=== PATIENT | female | born 1970 | race Caucasian/White ===

== ENCOUNTER 2021-08-29 12:58 | Emergency (ER) | payer OTHER ==
[2021-08-29 13:18] VITALS: RESP 18; TEMP 97.3
--- NOTE | 2021-08-29 13:39 | ED ---
Arrhythmia/Palpitations HPI - General Chief Complaint: Arrhythmia/Palpitations Stated Complaint: dizziness Time Seen by Provider: 08/29/21 13:15 Source: patient, EMS Mode of arrival: EMS Limitations: no limitations - History of Present Illness Initial Comments: 51-year-old female past medical history of COPD presents emergency departments with shortness of breath and palpitations. States that today she began having these waves of hot flashes, shortness of breath and palpitations. Started around 10:30 this morning. She denies chest pain. No history of cardiac disease. Last stress testing was several years ago. She does have a diagnosed history of COPD and continues to smoke. occasionally. No history of DVT or PE. No fevers, chills or cough. No alleviating, precipitating factors Review of Systems ROS Statement: Those systems with pertinent positive or pertinent negative responses have been documented in the HPI. ROS Other: All systems not noted in ROS Statement are negative. Past Medical History Past Medical History: COPD History of Any Multi-Drug Resistant Organisms: None Reported Past Surgical History: Hysterectomy, Orthopedic Surgery Past Psychological History: Anxiety Smoking Status: Current every day smoker Past Alcohol Use History: Occasional Past Drug Use History: None Reported General Exam Limitations: no limitations General appearance: alert, in no apparent distress Head exam: Present: atraumatic, normocephalic, normal inspection Eye exam: Present: normal appearance, PERRL, EOMI. Absent: scleral icterus, conjunctival injection, periorbital swelling ENT exam: Present: normal exam, mucous membranes moist Neck exam: Present: normal inspection. Absent: tenderness, meningismus, lymphadenopathy Respiratory exam: Present: normal lung sounds bilaterally. Absent: respiratory distress, wheezes, rales, rhonchi, stridor Cardiovascular Exam: Present: regular rate, normal rhythm, normal heart sounds. Absent: systolic murmur, diastolic murmur, rubs, gallop, clicks GI/Abdominal exam: Present: soft, normal bowel sounds. Absent: distended, tenderness, guarding, rebound, rigid Extremities exam: Present: normal inspection, full ROM, normal capillary refill. Absent: tenderness, pedal edema, joint swelling, calf tenderness Back exam: Present: normal inspection Neurological exam: Present: alert, oriented X3, CN II-XII intact Psychiatric exam: Present: normal affect, normal mood Skin exam: Present: warm, dry, intact, normal color. Absent: rash Course Vital Signs 08/29/21 08/29/21 13:10 15:35 Temperature 97.3 F L Pulse Rate 73 63 Respiratory 18 18 Rate Blood Pressure 153/95 131/96 O2 Sat by Pulse 99 98 Oximetry EKG Findings - EKG Comments: EKG Findings:: EKG demonstrates sinus rhythm with rate of 73. ME interval 144. QRS 89. QTC 449. No acute ST segment elevations or depressions Medical Decision Making - Medical Decision Making Upon arrival patient's placed into room 16. A thorough history and physical exam was performed. X-ray studies are obtained and patient was for chest x-ray. She is place on continuous pulse ox and cardiac monitoring and does have multiple PVCs throughout her stay. Upon reevaluation patient does feel improved. I did discuss diagnosis, differential and treatment options. Patient does need echo, stress testing and Holter monitoring for her palpitations. Fransico sky will follow up with her primary care doctor for this testing. She also has a known lung nodule which she will need repeat imaging about 3 months to determine size and need for biopsy. Return for any new or worsening symptoms. Patient discharged home in stable condition - Lab Data Result diagrams: 08/29/21 13:29 08/29/21 13:29 Lab Results 08/29/21 08/29/21 08/29/21 Range/Units 13:29 13:29 13:29 WBC 6.5 (3.8-10.6) k/uL RBC 4.94 (3.80-5.40) m/uL Hgb 14.5 (11.4-16.0) gm/dL Hct 45.3 (34.0-46.0) % MCV 91.6 (80.0-100.0) fL MCH 29.4 (25.0-35.0) pg MCHC 32.1 (31.0-37.0) g/dL RDW 13.6 (11.5-15.5) % Plt Count 337 (150-450) k/uL MPV 7.2 Neutrophils % 60 % Lymphocytes % 31 % Monocytes % 5 % Eosinophils % 2 % Basophils % 1 % Neutrophils # 3.9 (1.3-7.7) k/uL Lymphocytes # 2.0 (1.0-4.8) k/uL Monocytes # 0.3 (0-1.0) k/uL Eosinophils # 0.1 (0-0.7) k/uL Basophils # 0.0 (0-0.2) k/uL PT 10.1 (9.0-12.0) sec INR 0.9 (<1.2) APTT 20.2 L (22.0-30.0) sec Sodium (137-145) mmol/L Potassium (3.5-5.1) mmol/L Chloride (98-107) mmol/L Carbon Dioxide (22-30) mmol/L Anion Gap mmol/L BUN (7-17) mg/dL Creatinine (0.52-1.04) mg/dL Est GFR (CKD-EPI)AfAm (>60 ml/min/1.73 sqM) Est GFR (CKD-EPI)NonAf (>60 ml/min/1.73 sqM) Glucose (74-99) mg/dL Calcium (8.4-10.2) mg/dL Magnesium (1.6-2.3) mg/dL Total Bilirubin (0.2-1.3) mg/dL AST (14-36) U/L ALT (4-34) U/L Alkaline Phosphatase (38-126) U/L Troponin I (0.000-0.034) ng/mL Total Protein (6.3-8.2) g/dL Albumin (3.5-5.0) g/dL TSH (0.465-4.680) mIU/L Urine Color Colorless Urine Appearance Clear (Clear) Urine pH 6.5 (5.0-8.0) Ur Specific [place] 1.003 (1.001-1.035) Urine Protein Negative (Negative) Urine Glucose (UA) Negative (Negative) Urine Ketones Negative (Negative) Urine Blood Negative (Negative) Urine Nitrite Negative (Negative) Urine Bilirubin Negative (Negative) Urine Urobilinogen <2.0 (<2.0) mg/dL Ur Leukocyte Esterase Negative (Negative) 08/29/21 08/29/21 Range/Units 13:29 13:29 WBC (3.8-10.6) k/uL RBC (3.80-5.40) m/uL Hgb (11.4-16.0) gm/dL Hct (34.0-46.0) % MCV (80.0-100.0) fL MCH (25.0-35.0) pg MCHC (31.0-37.0) g/dL RDW (11.5-15.5) % Plt Count (150-450) k/uL MPV Neutrophils % % Lymphocytes % % Monocytes % % Eosinophils % % Basophils % % Neutrophils # (1.3-7.7) k/uL Lymphocytes # (1.0-4.8) k/uL Monocytes # (0-1.0) k/uL Eosinophils # (0-0.7) k/uL Basophils # (0-0.2) k/uL PT (9.0-12.0) sec INR (<1.2) APTT (22.0-30.0) sec Sodium 140 (137-145) mmol/L Potassium 3.7 (3.5-5.1) mmol/L Chloride 109 H (98-107) mmol/L Carbon Dioxide 23 (22-30) mmol/L Anion Gap 8 mmol/L BUN 11 (7-17) mg/dL Creatinine 0.67 (0.52-1.04) mg/dL Est GFR (CKD-EPI)AfAm >90 (>60 ml/min/1.73 sqM) Est GFR (CKD-EPI)NonAf >90 (>60 ml/min/1.73 sqM) Glucose 93 (74-99) mg/dL Calcium 9.5 (8.4-10.2) mg/dL Magnesium 1.9 (1.6-2.3) mg/dL Total Bilirubin 0.6 (0.2-1.3) mg/dL AST 31 (14-36) U/L ALT 22 (4-34) U/L Alkaline Phosphatase 85 (38-126) U/L Troponin I <0.012 (0.000-0.034) ng/mL Total Protein 6.8 (6.3-8.2) g/dL Albumin 4.4 (3.5-5.0) g/dL TSH 0.869 (0.465-4.680) mIU/L Urine Color Urine Appearance (Clear) Urine pH (5.0-8.0) Ur Specific Tyler (1.001-1.035) Urine Protein (Negative) Urine Glucose (UA) (Negative) Urine Ketones (Negative) Urine Blood (Negative) Urine Nitrite (Negative) Urine Bilirubin (Negative) Urine Urobilinogen (<2.0) mg/dL Ur Leukocyte Esterase (Negative) Disposition Clinical Impression: Pulmonary nodule, Palpitations Disposition: HOME SELF-CARE Condition: Stable Instructions (If sedation given, give patient instructions): Heart Palpitations (ED), Pulmonary Nodules (ED) Additional Instructions: You have a lung nodule. This must be reimaged within 3 months. Please follow- up with the primary care doctor for echo, Holter monitoring and a stress test. If you have any new or worsening symptoms please return to the emergency department Is patient prescribed a controlled substance at d/c from ED?: No Referrals: None,Stated [Primary Care Provider] - 1-2 days Demond Macario MD [STAFF PHYSICIAN] - 1-2 days Polo Ardon MD [STAFF PHYSICIAN] - 1-2 days [facility] [Provider Group] - 1-2 days Time of Disposition: 15:25
[2021-08-29 13:48] LABS: Basophils % (A) 1 %; Eosinophils # (A) 0.1 k/uL (0-0.7); Eosinophils % (A) 2 %; HCT 45.3 % (34.0-46.0); HGB 14.5 gm/dL (11.4-16.0); Lymphocytes % (A) 31 %; MCH 29.4 pg (25.0-35.0); MCHC 32.1 g/dL (31.0-37.0); MCV 91.6 fL (80.0-100.0); Mean Platelet Volume 7.2; Monocytes # (A) 0.3 k/uL (0-1.0); Monocytes % (A) 5 %; Neutrophils # (A) 3.9 k/uL (1.3-7.7); Neutrophils % (A) 60 %; Platelet Count 337 k/uL (150-450); RBC 4.94 m/uL (3.80-5.40); RDW 13.6 % (11.5-15.5); WBC 6.5 k/uL (3.8-10.6)
[2021-08-29 13:58] LABS: ALT 22 U/L (4-34); AST 31 U/L (14-36); African American GFR (CKD) >90 (>60 ml/min/1.73 sqM); Albumin 4.4 g/dL (3.5-5.0); Alkaline Phosphatase 85 U/L (38-126); Anion Gap 8 mmol/L; Blood Urea Nitrogen 11 mg/dL (7-17); Calcium 9.5 mg/dL (8.4-10.2); Carbon Dioxide 23 mmol/L (22-30); Chloride 109 mmol/L (98-107); Glucose 93 mg/dL (74-99); Magnesium 1.9 mg/dL (1.6-2.3); Non-African American GFR(CKD) >90 (>60 ml/min/1.73 sqM); Potassium 3.7 mmol/L (3.5-5.1); Sodium 140 mmol/L (137-145); Total Bilirubin 0.6 mg/dL (0.2-1.3); Total Protein 6.8 g/dL (6.3-8.2)
--- NOTE | 2021-08-29 13:58 | XR ---
EXAMINATION TYPE: XR chest 2V DATE OF EXAM: 08/29/2021 COMPARISON: NONE TECHNIQUE: PA and lateral views submitted. HISTORY: Dysrhythmia FINDINGS: The lungs are clear and there is no pneumothorax, pleural effusion, or focal pneumonia. Heart size normal. Hyperinflation suggests COPD. No overt failure. Post surgical changes overlying the cervical spine. Nodular density overlying the thoracic spine 7 mm. too small to characterize. IMPRESSION: 1. No acute process. Correlate for COPD. Of a nodule overlying the upper thoracic spine could represe nt a pulmonary nodule. Short-term follow-up CT chest obtained
[2021-08-29 14:06] LABS: INR 0.9 (<1.2); Prothrombin Time 10.1 sec (9.0-12.0)
[2021-08-29 14:16] LABS: Appearance,Urine Clear (Clear); Bilirubin,Urine Negative (Negative); Blood,Urine Negative (Negative); Color,Urine Colorless; Glucose,Urine (UA) Negative (Negative); Ketones,Urine Negative (Negative); Leukocyte Esterase,Urine Negative (Negative); Nitrite,Urine Negative (Negative); PH, Urine 6.5 (5.0-8.0); Protein,Urine Negative (Negative); Specific Gravity,Urine 1.003 (1.001-1.035); Urobilinogen,Urine <2.0 mg/dL (<2.0)
[2021-08-29 14:18] LABS: Partial Thromboplastin Time 20.2 sec (22.0-30.0)
[2021-08-29 15:40] VITALS: BP 131/96; PULSE 63
== END 2021-08-29 15:40 | disposition home or self-care (01) ==
LOC: EC 12:58
DX: R00.2 Palpitations (principal); R91.1 Solitary pulmonary nodule; R42 Dizziness and giddiness; F17.200 Nicotine dependence, unspecified, uncomplicated; J44.9 Chronic obstructive pulmonary disease, unspecified
CPT/HCPCS: 36415; 71046; 80053; 81003; 83735; 84443; 84484; 85025; 85610; 85730; 93005; 99285

== ENCOUNTER 2022-09-20 14:40 | Emergency (ER) | payer OTHER ==
[2022-09-20] MEDS ORDERED: methylPREDNISolone SOD SUCCI 125 MG/2 ML VIAL IV STA (15:12)
[2022-09-20] MEDS ORDERED: ALBUTEROL NEBULIZED 2.5 MG/3 ML INHALATION STA (15:12)
[2022-09-20] MEDS ORDERED: IPRATROPIUM 0.5 MG/2.5 ML NEBU INHALATION STA (15:12)
--- NOTE | 2022-09-20 15:39 | XR ---
EXAMINATION TYPE: XR chest 2V DATE OF EXAM: 09/20/2022 COMPARISON: 08/29/2021 HISTORY: Shortness of breath TECHNIQUE: Frontal and lateral views of the chest are obtained. FINDINGS: Scattered senescent parenchymal changes noted. Hyperinflation compatible with COPD. No evidence for infiltrate. No evidence for atelectasis. Heart size is stable. Mediastinal structures are stable and grossly unremarkable. No evidence for hilar prominence. Degenerative changes dorsal spine. IMPRESSION: 1. No evidence for acute pulmonary disease.
[2022-09-20 15:49] LABS: ALT 21 U/L (4-34); AST 25 U/L (14-36); African American GFR (CKD) >90 (>60 ml/min/1.73 sqM); Alkaline Phosphatase 58 U/L (38-126); Anion Gap 10 mmol/L; Basophils % (A) 1 %; Blood Urea Nitrogen 10 mg/dL (7-17); Calcium 9.4 mg/dL (8.4-10.2); Carbon Dioxide 23 mmol/L (22-30); Chloride 108 mmol/L (98-107); Eosinophils # (A) 0.3 k/uL (0-0.7); Eosinophils % (A) 4 %; Glucose 71 mg/dL (74-99); HGB 13.9 gm/dL (11.4-16.0); Lymphocytes # (A) 2.3 k/uL (1.0-4.8); Lymphocytes % (A) 35 %; MCH 30.4 pg (25.0-35.0); MCHC 33.2 g/dL (31.0-37.0); MCV 91.5 fL (80.0-100.0); Mean Platelet Volume 7.3; Monocytes # (A) 0.4 k/uL (0-1.0); Monocytes % (A) 5 %; Neutrophils # (A) 3.6 k/uL (1.3-7.7); Neutrophils % (A) 53 %; Non-African American GFR(CKD) >90 (>60 ml/min/1.73 sqM); Platelet Count 282 k/uL (150-450); Potassium 3.7 mmol/L (3.5-5.1); RBC 4.59 m/uL (3.80-5.40); RDW 13.1 % (11.5-15.5); Sodium 141 mmol/L (137-145); Total Bilirubin 0.3 mg/dL (0.2-1.3); Total Protein 6.3 g/dL (6.3-8.2); WBC 6.7 k/uL (3.8-10.6)
[2022-09-20] MEDS ORDERED: cefTRIAXone IN SWFI 1,000 MG/10 ML SYRINGE IVP STA (17:02)
--- NOTE | 2022-09-20 17:02 | ED ---
General Adult HPI - General Chief complaint: Chest Pain Stated complaint: sob,chest congestion Time Seen by Provider: 09/20/22 14:45 Source: patient Mode of arrival: wheelchair Limitations: no limitations - History of Present Illness Initial comments: This is a 52-year-old female presents emergency Department complaining of shortness of breath on and off for the last week. Patient states she has chest tightness and has been coughing quite a bit for the last week. Patient states she also thinks she hurt her ribs on the left side because when she touches and they're tender when she takes deep breath or tender. Patient denies a fever or chills. Patient denies any abdominal pain patient denies nausea vomiting diarrhea. Patient denies any back pain. - Related Data Home Medications Medication Instructions Recorded Confirmed Albuterol Inhaler [Ventolin Hfa 1 - 2 puff INHALATION RT-Q6H PRN 09/20/22 09/20/22 Inhaler] Albuterol Nebulized [Ventolin 2.5 mg INHALATION RT-Q6H PRN 09/20/22 09/20/22 Nebulized] Cyclobenzaprine [Flexeril] 5 mg PO TID PRN 09/20/22 09/20/22 Gabapentin [Neurontin] 100 mg PO QID 09/20/22 09/20/22 HYDROcodone/APAP 10-325MG [[place] 1 tab PO 5XD PRN 09/20/22 09/20/22 10-325] Ibuprofen [Motrin] 400 mg PO BID PRN 09/20/22 09/20/22 Ondansetron [Zofran] 4 mg PO Q8HR PRN 09/20/22 09/20/22 busPIRone HCl [Buspar] 10 mg PO BID 09/20/22 09/20/22 diazePAM [Valium] 5 mg PO Q8H PRN 09/20/22 09/20/22 Previous Rx's Medication Instructions Recorded Albuterol Inhaler [Ventolin Hfa 1 - 2 puff INHALATION Q6HR PRN #2 09/20/22 Inhaler] each Azithromycin [Zithromax Tri-Mian (3 500 mg PO DAILY 3 Days #3 tab 09/20/22 tabs)] Ipratropium-Albuterol Nebulize 3 ml INHALATION Q6H #90 ml 09/20/22 [Duoneb 0.5 mg-3 mg/3 ml Soln] predniSONE [Deltasone] 40 mg PO DAILY #8 tab 09/20/22 Allergies Allergy/AdvReac Type Severity Reaction Status Date / Time aloe vera [From Flexall] Allergy Anaphylaxis Verified 09/20/22 15:52 bacitracin Allergy Rash/Hives Verified 09/20/22 15:52 [From Neosporin ([id number])] menthol [From Flexall] Allergy Anaphylaxis Verified 09/20/22 15:52 neomycin Allergy Rash/Hives Verified 09/20/22 15:52 [From Neosporin ([id number])] polymyxin B Allergy Rash/Hives Verified 09/20/22 15:52 [From Neosporin ([id number])] red (food color) Allergy Rash/Hives Verified 09/20/22 15:52 vitamin E (d-alpha Allergy Anaphylaxis Verified 09/20/22 15:52 tocopherol) [From Flexall] Review of Systems ROS Statement: Those systems with pertinent positive or pertinent negative responses have been documented in the HPI. ROS Other: All systems not noted in ROS Statement are negative. Past Medical History Past Medical History: COPD Additional Past Medical History / Comment(s): back pain, lung nodule History of Any Multi-Drug Resistant Organisms: None Reported Past Surgical History: Hysterectomy, Orthopedic Surgery Past Psychological History: Anxiety, Depression Smoking Status: Current every day smoker Past Alcohol Use History: Occasional Past Drug Use History: None Reported General Exam - General Exam Comments Initial Comments: GENERAL: Patient is well-developed and well-nourished. Patient is nontoxic and well- hydrated and is in mild distress. ENT: Neck is soft and supple. No significant lymphadenopathy is noted. Oropharynx is clear. Moist mucous membranes. Neck has full range of motion without eliciting any pain. EYES: The sclera were anicteric and conjunctiva were pink and moist. Extraocular movements were intact and pupils were equal round and reactive to light. Eyelids were unremarkable. PULMONARY: Patient has some expiratory wheezing CARDIOVASCULAR: There is a regular rate and rhythm without any murmurs gallops or rubs. Chest pain is reproducible on palpation ABDOMEN: Soft and nontender with normal bowel sounds. SKIN: Skin is clear with no lesions or rashes and otherwise unremarkable. NEUROLOGIC: Patient is alert and oriented x3. Cranial nerves II through XII are grossly intact. Motor and sensory are also intact. Normal speech, volume and content. Symmetrical smile. MUSCULOSKELETAL: Normal extremities with adequate strength and full range of motion. No lower extremity swelling or edema. No calf tenderness. LYMPHATICS: No significant lymphadenopathy is noted PSYCHIATRIC: Normal psychiatric evaluation. Limitations: no limitations Course Vital Signs 09/20/22 09/20/22 14:43 16:20 Temperature 98.0 F Pulse Rate 84 82 Respiratory 22 Rate Blood Pressure 111/80 O2 Sat by Pulse 100 Oximetry Medical Decision Making - Medical Decision Making EKG was interpreted by myself. EKG shows a sinus rhythm at a 81 bpm MS interval 246 QRS is 81 QT interval 356 QTC is 393. Patient's EKG shows no ST segment or depression. Was pt. sent in by a medical professional or institution (KATHYA Nela, RECEPTION CLERK, urgent care, hospital, or fdc...) When possible be specific @ -No Did you speak to anyone other than the patient for history (EMS, parent, family, police, friend...)? What history was obtained from this source @ -No Did you review nursing and triage notes (agree or disagree)? Why? @ -I reviewed and agree with nursing and triage notes Were old charts reviewed (outside hosp., previous admission, EMS record, old EKG, old radiological studies, urgent care reports/EKG's, fdc records)? Report findings @ -I reviewed prior charts her prior lab work Differential Diagnosis (chest pain, altered mental status, abdominal pain women, abdominal pain men, vaginal bleeding, weakness, fever, dyspnea, syncope, headache, dizziness, GI bleed, back pain, seizure, CVA, palpatations, mental health, musculoskeletal)? @ -Differential Dyspnea: Coronary syndrome, arrhythmia, tamponade, asthma, COPD, pulmonary embolism, pneumonia, pneumothorax, pulmonary effusion, anaphylaxis, diabetic ketoacidosis, flailed chest, pulmonary contusion, diaphragmatic rupture, anemia, n euromuscular, this is not meant to be an all-inclusive list. EKG interpreted by me (3pts min.). @ -As above X-rays interpreted by me (1pt min.). @ -Chest x-ray shows no acute abnormality CT interpreted by me (1pt min.). @ -None done U/S interpreted by me (1pt. min.). @ -None done What testing was considered but not performed or refused? (CT, X-rays, U/S, labs)? Why? @ -None What meds were considered but not given or refused? Why? @ -None Did you discuss the management of the patient with other professionals (professionals i.e. , PA, RECEPTION CLERK, lab, RT, psych nurse, social professionals, medical lab scientist, teacher, pharmaceutical officer, outpatient case manager)? Give summary @ -No Was smoking cessation discussed for >3mins.? @ -Yes Was critical care preformed (if so, how long)? @ -No Were there social determinants of health that impacted care today? How? (Homelessness, low income, unemployed, alcoholism, drug addiction, transportation, low edu. Level, literacy, decrease access to med. care, [facility], rehab)? @ -No Was there de-escalation of care discussed even if they declined (Discuss DNR or withdrawal of care, Hospice)? DNR status @ -No What co-morbidities impacted this encounter? (DM, HTN, Smoking, COPD, CAD, Cancer, CVA, ARF, Chemo, Hep., AIDS, mental health diagnosis, sleep apnea, morbid obesity)? @ -None Was patient admitted / discharged? Hospital course, mention meds given and route, prescriptions, significant lab abnormalities, going to OR and other pertinent info. @ -Patient received multiple breathing treatments as well as steroids. Patient also received Rocephin. Patient has a normal chest x-ray patient be discharged with a steroids and antibiotics on the way home. Patient does agree that she will try to quit smoking. Undiagnosed new problem with uncertain prognosis? @ -No Drug Therapy requiring intensive monitoring for toxicity (Heparin, Nitro, Insulin, Cardizem)? @ -No Were any procedures done? @ -No Diagnosis/symptom? @ -COPD exacerbation Acute, or Chronic, or Acute on Chronic? @ -Acute Uncomplicated (without systemic symptoms) or Complicated (systemic symptoms)? @ -Complicated Side effects of treatment? @ -No Exacerbation, Progression, or Severe Exacerbation? @ -No Poses a threat to life or bodily function? How? (Chest pain, [place], [place], pneumonia, PE, COPD, DKA, ARF, appy, cholecystitis, CVA, Diverticulitis, Homicidal, Suicidal, threat to staff... and all critical care pts) @ -Yes this could lead to hypoxia and end organ dysfunction - Lab Data Result diagrams: 09/20/22 15:29 09/20/22 15:29 Lab Results 09/20/22 09/20/22 09/20/22 Range/Units 15:29 15:29 15:29 WBC 6.7 (3.8-10.6) k/uL RBC 4.59 (3.80-5.40) m/uL Hgb 13.9 (11.4-16.0) gm/dL Hct 42.0 (34.0-46.0) % MCV 91.5 (80.0-100.0) fL MCH 30.4 (25.0-35.0) pg MCHC 33.2 (31.0-37.0) g/dL RDW 13.1 (11.5-15.5) % Plt Count 282 (150-450) k/uL MPV 7.3 Neutrophils % 53 % Lymphocytes % 35 % Monocytes % 5 % Eosinophils % 4 % Basophils % 1 % Neutrophils # 3.6 (1.3-7.7) k/uL Lymphocytes # 2.3 (1.0-4.8) k/uL Monocytes # 0.4 (0-1.0) k/uL Eosinophils # 0.3 (0-0.7) k/uL Basophils # 0.0 (0-0.2) k/uL Sodium 141 (137-145) mmol/L Potassium 3.7 (3.5-5.1) mmol/L Chloride 108 H (98-107) mmol/L Carbon Dioxide 23 (22-30) mmol/L Anion Gap 10 mmol/L BUN 10 (7-17) mg/dL Creatinine 0.75 (0.52-1.04) mg/dL Est GFR (CKD-EPI)AfAm >90 (>60 ml/min/1.73 sqM) Est GFR (CKD-EPI)NonAf >90 (>60 ml/min/1.73 sqM) Glucose 71 L (74-99) mg/dL Plasma Lactic Acid Ramon 1.4 (0.7-2.0) mmol/L Calcium 9.4 (8.4-10.2) mg/dL Magnesium 2.0 (1.6-2.3) mg/dL Total Bilirubin 0.3 (0.2-1.3) mg/dL AST 25 (14-36) U/L ALT 21 (4-34) U/L Alkaline Phosphatase 58 (38-126) U/L Troponin I (0.000-0.034) ng/mL Total Protein 6.3 (6.3-8.2) g/dL Albumin 4.0 (3.5-5.0) g/dL Influenza Type A (PCR) (Not Detectd) Influenza Type B (PCR) (Not Detectd) RSV (PCR) (Not Detectd) SARS-CoV-2 (PCR) (Not Detectd) 09/20/22 09/20/22 Range/Units 15:29 15:29 WBC (3.8-10.6) k/uL RBC (3.80-5.40) m/uL Hgb (11.4-16.0) gm/dL Hct (34.0-46.0) % MCV (80.0-100.0) fL MCH (25.0-35.0) pg MCHC (31.0-37.0) g/dL RDW (11.5-15.5) % Plt Count (150-450) k/uL MPV Neutrophils % % Lymphocytes % % Monocytes % % Eosinophils % % Basophils % % Neutrophils # (1.3-7.7) k/uL Lymphocytes # (1.0-4.8) k/uL Monocytes # (0-1.0) k/uL Eosinophils # (0-0.7) k/uL Basophils # (0-0.2) k/uL Sodium (137-145) mmol/L Potassium (3.5-5.1) mmol/L Chloride (98-107) mmol/L Carbon Dioxide (22-30) mmol/L Anion Gap mmol/L BUN (7-17) mg/dL Creatinine (0.52-1.04) mg/dL Est GFR (CKD-EPI)AfAm (>60 ml/min/1.73 sqM) Est GFR (CKD-EPI)NonAf (>60 ml/min/1.73 sqM) Glucose (74-99) mg/dL Plasma Lactic Acid Ramon (0.7-2.0) mmol/L Calcium (8.4-10.2) mg/dL Magnesium (1.6-2.3) mg/dL Total Bilirubin (0.2-1.3) mg/dL AST (14-36) U/L ALT (4-34) U/L Alkaline Phosphatase (38-126) U/L Troponin I <0.012 (0.000-0.034) ng/mL Total Protein (6.3-8.2) g/dL Albumin (3.5-5.0) g/dL Influenza Type A (PCR) Not Detected (Not Detectd) Influenza Type B (PCR) Not Detected (Not Detectd) RSV (PCR) Not Detected (Not Detectd) SARS-CoV-2 (PCR) Not Detected (Not Detectd) Disposition Clinical Impression: Acute exacerbation of chronic obstructive pulmonary disease (COPD) Disposition: HOME SELF-CARE Instructions (If sedation given, give patient instructions): COPD (Chronic Obstructive Pulmonary Disease) (ED) Prescriptions: predniSONE [Deltasone] 40 mg PO DAILY #8 tab Ipratropium-Albuterol Nebulize [Duoneb 0.5 mg-3 mg/3 ml Soln] 3 ml INHALATION Q6H #90 ml Albuterol Inhaler [Ventolin Hfa Inhaler] 1 - 2 puff INHALATION Q6HR PRN #2 each PRN Reason: Difficulty breathing Azithromycin [Zithromax Tri-Mian (3 tabs)] 500 mg PO DAILY 3 Days #3 tab Is patient prescribed a controlled substance at d/c from ED?: No Referrals: None,Stated [Primary Care Provider] - 1-2 days Time of Disposition: 17:30
[2022-09-20] MEDS ORDERED: cefTRIAXone 1,000 MG VIAL (IM USE) IM STA (17:34)
[2022-09-20 17:51] VITALS: BP 104/83; PULSE 77; RESP 18; TEMP 98.6
== END 2022-09-20 17:51 | disposition home or self-care (01) ==
LOC: EC 14:40
DX: J44.1 Chronic obstructive pulmonary disease with (acute) exacerbation (principal); F41.9 Anxiety disorder, unspecified; F32.A Depression, unspecified; F17.200 Nicotine dependence, unspecified, uncomplicated; Z88.8 Allergy status to other drugs, medicaments and biological substances; Z88.1 Allergy status to other antibiotic agents; Z79.899 Other long term (current) drug therapy; Z20.822 Contact with and (suspected) exposure to COVID-19
CPT/HCPCS: 36415; 94640; 93005; 80053; 83605; 83735; 84484; 85025; 87636; 71046; 99285; 96374; 96372; J2930; J0696

== ENCOUNTER 2022-12-18 19:23 | Emergency (ER) | payer OTHER ==
[2022-12-18 19:37] VITALS: BP 108/68; PULSE 111; RESP 20; TEMP 96.8
[2022-12-18] MEDS ORDERED: KETOROLAC 15 MG/ML 1 ML VIAL IVP STA (19:41)
--- NOTE | 2022-12-18 19:41 | ED ---
General Adult HPI - General Chief complaint: Chest Pain Stated complaint: Chest Pain, SOB Time Seen by Provider: 12/18/22 19:35 Source: patient, RN notes reviewed, old records reviewed Mode of arrival: ambulatory Limitations: no limitations - History of Present Illness Initial comments: This a 52-year-old female who presents to the emergency department stating that since she woke up this week she's been getting sharp chest pain in the center of her chest that lasted about 3 seconds and she's had 5 episodes of these. Patient states she had an episode while she was having her EKG. Patient denies shortness of breath difficulty breathing or any diaphoretic episodes. Patient denies any nausea. Patient denies any abdominal pain. Patient denies any radiation of the pain. Patient is having no pain currently. Patient states she does continue to smoke. - Related Data Home Medications Medication Instructions Recorded Confirmed Albuterol Inhaler [Ventolin Hfa 1 - 2 puff INHALATION RT-Q6H PRN 09/20/22 09/20/22 Inhaler] Albuterol Nebulized [Ventolin 2.5 mg INHALATION RT-Q6H PRN 09/20/22 09/20/22 Nebulized] Cyclobenzaprine [Flexeril] 5 mg PO TID PRN 09/20/22 09/20/22 Gabapentin [Neurontin] 100 mg PO QID 09/20/22 09/20/22 HYDROcodone/APAP 10-325MG [[place] 1 tab PO 5XD PRN 09/20/22 09/20/22 10-325] Ibuprofen [Motrin] 400 mg PO BID PRN 09/20/22 09/20/22 Ondansetron [Zofran] 4 mg PO Q8HR PRN 09/20/22 09/20/22 busPIRone HCl [Buspar] 10 mg PO BID 09/20/22 09/20/22 diazePAM [Valium] 5 mg PO Q8H PRN 09/20/22 09/20/22 Previous Rx's Medication Instructions Recorded Albuterol Inhaler [Ventolin Hfa 1 - 2 puff INHALATION Q6HR PRN #2 09/20/22 Inhaler] each Azithromycin [Zithromax Tri-Mian (3 500 mg PO DAILY 3 Days #3 tab 09/20/22 tabs)] Ipratropium-Albuterol Nebulize 3 ml INHALATION Q6H #90 ml 09/20/22 [Duoneb 0.5 mg-3 mg/3 ml Soln] predniSONE [Deltasone] 40 mg PO DAILY #8 tab 09/20/22 Allergies Allergy/AdvReac Type Severity Reaction Status Date / Time aloe vera [From Flexall] Allergy Anaphylaxis Verified 12/18/22 19:27 bacitracin Allergy Rash/Hives Verified 12/18/22 19:27 [From Neosporin ([id number])] menthol [From Flexall] Allergy Anaphylaxis Verified 12/18/22 19:27 neomycin Allergy Rash/Hives Verified 12/18/22 19:27 [From Neosporin ([id number])] polymyxin B Allergy Rash/Hives Verified 12/18/22 19:27 [From Neosporin ([id number])] red (food color) Allergy Rash/Hives Verified 12/18/22 19:27 vitamin E (d-alpha Allergy Anaphylaxis Verified 12/18/22 19:27 tocopherol) [From Flexall] Review of Systems ROS Statement: Those systems with pertinent positive or pertinent negative responses have been documented in the HPI. ROS Other: All systems not noted in ROS Statement are negative. Past Medical History Past Medical History: COPD Additional Past Medical History / Comment(s): back pain, lung nodule History of Any Multi-Drug Resistant Organisms: None Reported Past Surgical History: Hysterectomy, Orthopedic Surgery Past Psychological History: Anxiety, Depression Smoking Status: Current every day smoker Past Alcohol Use History: Occasional Past Drug Use History: None Reported General Exam - General Exam Comments Initial Comments: GENERAL: Patient is well-developed and well-nourished. Patient is nontoxic and well- hydrated and is in no acute distress. ENT: Neck is soft and supple. No significant lymphadenopathy is noted. Oropharynx is clear. Moist mucous membranes. Neck has full range of motion without eliciting any pain. EYES: The sclera were anicteric and conjunctiva were pink and moist. Extraocular movements were intact and pupils were equal round and reactive to light. Eyelids were unremarkable. PULMONARY: Unlabored respirations. Good breath sounds bilaterally. No audible rales rhonchi or wheezing was noted. CARDIOVASCULAR: There is a regular rate and rhythm without any murmurs gallops or rubs. ABDOMEN: Soft and nontender with normal bowel sounds. SKIN: Skin is clear with no lesions or rashes and otherwise unremarkable. NEUROLOGIC: Patient is alert and oriented x3. Cranial nerves II through XII are grossly intact. Motor and sensory are also intact. Normal speech, volume and content. Symmetrical smile. MUSCULOSKELETAL: Normal extremities with adequate strength and full range of motion. No lower extremity swelling or edema. No calf tenderness. LYMPHATICS: No significant lymphadenopathy is noted PSYCHIATRIC: Normal psychiatric evaluation. Limitations: no limitations Course Vital Signs 12/18/22 19:25 Temperature 96.8 F L Pulse Rate 111 H Respiratory 20 Rate Blood Pressure 108/68 O2 Sat by Pulse 100 Oximetry Medical Decision Making - Medical Decision Making EKG is interpreted by myself. EKG shows a sinus tachycardia at 103 bpm WA interval 260 QRS is 89 QT interval 335 QTC is 395 per patient's EKG shows no ST segment elevation or depression. Was pt. sent in by a medical professional or institution (, PA, FORMING MACHINE UPKEEP MECHANIC, urgent care, hospital, or correction...) When possible be specific @ -No Did you speak to anyone other than the patient for history (EMS, parent, family, police, friend...)? What history was obtained from this source @ -No Did you review nursing and triage notes (agree or disagree)? Why? @ -I reviewed and agree with nursing and triage notes Were old charts reviewed (outside hosp., previous admission, EMS record, old EKG, old radiological studies, urgent care reports/EKG's, correction records)? Report findings @ -I reviewed prior charts I lab work. Differential Diagnosis (chest pain, altered mental status, abdominal pain women, abdominal pain men, vaginal bleeding, weakness, fever, dyspnea, syncope, headache, dizziness, GI bleed, back pain, seizure, CVA, palpatations, mental health, musculoskeletal)? @ -Differential Chest Pain: Stable Angina, Unstable Angina, STEMI, NSTEMI Aortic Dissection, Pneumothorax, Musculoskeletal, Esophageal Spasm GERD, Cholecystitis, Pancreatitis, Zoster, this is not meant to be an all-inclusive list. EKG interpreted by me (3pts min.). @ -As above X-rays interpreted by me (1pt min.). @ -Chest x-ray shows no acute abnormality CT interpreted by me (1pt min.). @ -None done U/S interpreted by me (1pt. min.). @ -None done What testing was considered but not performed or refused? (CT, X-rays, U/S, labs)? Why? @ -None What meds were considered but not given or refused? Why? @ -None Did you discuss the management of the patient with other professionals (professionals i.e. , PA, FORMING MACHINE UPKEEP MECHANIC, lab, RT, psych nurse, social worker delinquency prevention, surgery scheduling coordinator, teacher, real estate utilization officer, hospice case manager)? Give summary @ -No Was smoking cessation discussed for >3mins.? @ -No Was critical care preformed (if so, how long)? @ -No Were there social determinants of health that impacted care today? How? (Homelessness, low income, unemployed, alcoholism, drug addiction, transportation, low edu. Level, literacy, decrease access to med. care, nursing home, rehab)? @ -No Was there de-escalation of care discussed even if they declined (Discuss DNR or withdrawal of care, Hospice)? DNR status @ -No What co-morbidities impacted this encounter? (DM, HTN, Smoking, COPD, CAD, Cancer, CVA, ARF, Chemo, Hep., AIDS, mental health diagnosis, sleep apnea, morbid obesity)? @ -None Was patient admitted / discharged? Hospital course, mention meds given and route, prescriptions, significant lab abnormalities, going to OR and other pertinent info. @ -Patient's lab work was all within normal range. Chest x-ray showed no acute abnormality. Patient had no further chest pain while she was in the emergency department. Patient states the pain only lasted 3 seconds but it was concerning because he continued all day so she wanted to get evaluated. Undiagnosed new problem with uncertain prognosis? @ -No Drug Therapy requiring intensive monitoring for toxicity (Heparin, Nitro, In sulin, Cardizem)? @ -No Were any procedures done? @ -No Diagnosis/symptom? @ -Chest wall pain Acute, or Chronic, or Acute on Chronic? @ -Acute Uncomplicated (without systemic symptoms) or Complicated (systemic symptoms)? @ -Uncomplicated Side effects of treatment? @ -No Exacerbation, Progression, or Severe Exacerbation? @ -No Poses a threat to life or bodily function? How? (Chest pain, [place], [place], pneumonia, PE, COPD, DKA, ARF, appy, cholecystitis, CVA, Diverticulitis, Homicidal, Suicidal, threat to staff... and all critical care pts) @ -No - Lab Data Result diagrams: 12/18/22 19:59 12/18/22 19:59 Lab Results 12/18/22 12/18/22 12/18/22 Range/Units 19:59 19:59 19:59 WBC 7.5 (3.8-10.6) k/uL RBC 4.53 (3.80-5.40) m/uL Hgb 13.5 (11.4-16.0) gm/dL Hct 40.1 (34.0-46.0) % MCV 88.4 (80.0-100.0) fL MCH 29.7 (25.0-35.0) pg MCHC 33.6 (31.0-37.0) g/dL RDW 13.2 (11.5-15.5) % Plt Count 385 (150-450) k/uL MPV 7.2 Neutrophils % 52 % Lymphocytes % 33 % Monocytes % 6 % Eosinophils % 6 % Basophils % 1 % Neutrophils # 4.0 (1.3-7.7) k/uL Lymphocytes # 2.5 (1.0-4.8) k/uL Monocytes # 0.4 (0-1.0) k/uL Eosinophils # 0.5 (0-0.7) k/uL Basophils # 0.0 (0-0.2) k/uL PT 9.7 L (10.0-12.5) sec INR 0.9 (<1.2) APTT 23.4 (22.0-30.0) sec D-Dimer 0.38 (<0.60) mg/L FEU Sodium 141 (137-145) mmol/L Potassium 4.1 (3.5-5.1) mmol/L Chloride 108 H (98-107) mmol/L Carbon Dioxide 23 (22-30) mmol/L Anion Gap 10 mmol/L BUN 15 (7-17) mg/dL Creatinine 1.05 H (0.52-1.04) mg/dL Est GFR (CKD-EPI)AfAm 71 (>60 ml/min/1.73 sqM) Est GFR (CKD-EPI)NonAf 61 (>60 ml/min/1.73 sqM) Glucose 94 (74-99) mg/dL Calcium 9.6 (8.4-10.2) mg/dL Magnesium 2.0 (1.6-2.3) mg/dL Total Bilirubin 0.3 (0.2-1.3) mg/dL AST 24 (14-36) U/L ALT 19 (4-34) U/L Alkaline Phosphatase 68 (38-126) U/L Troponin I (0.000-0.034) ng/mL Total Protein 6.4 (6.3-8.2) g/dL Albumin 4.0 (3.5-5.0) g/dL 12/18/22 Range/Units 19:59 WBC (3.8-10.6) k/uL RBC (3.80-5.40) m/uL Hgb (11.4-16.0) gm/dL Hct (34.0-46.0) % MCV (80.0-100.0) fL MCH (25.0-35.0) pg MCHC (31.0-37.0) g/dL RDW (11.5-15.5) % Plt Count (150-450) k/uL MPV Neutrophils % % Lymphocytes % % Monocytes % % Eosinophils % % Basophils % % Neutrophils # (1.3-7.7) k/uL Lymphocytes # (1.0-4.8) k/uL Monocytes # (0-1.0) k/uL Eosinophils # (0-0.7) k/uL Basophils # (0-0.2) k/uL PT (10.0-12.5) sec INR (<1.2) APTT (22.0-30.0) sec D-Dimer (<0.60) mg/L FEU Sodium (137-145) mmol/L Potassium (3.5-5.1) mmol/L Chloride (98-107) mmol/L Carbon Dioxide (22-30) mmol/L Anion Gap mmol/L BUN (7-17) mg/dL Creatinine (0.52-1.04) mg/dL Est GFR (CKD-EPI)AfAm (>60 ml/min/1.73 sqM) Est GFR (CKD-EPI)NonAf (>60 ml/min/1.73 sqM) Glucose (74-99) mg/dL Calcium (8.4-10.2) mg/dL Magnesium (1.6-2.3) mg/dL Total Bilirubin (0.2-1.3) mg/dL AST (14-36) U/L ALT (4-34) U/L Alkaline Phosphatase (38-126) U/L Troponin I <0.012 (0.000-0.034) ng/mL Total Protein (6.3-8.2) g/dL Albumin (3.5-5.0) g/dL Disposition Clinical Impression: Chest wall pain Disposition: HOME SELF-CARE Condition: Good Instructions (If sedation given, give patient instructions): Chest Wall Pain (ED), Chest Pain (ED) Is patient prescribed a controlled substance at d/c from ED?: No Referrals: None,Stated [Primary Care Provider] - 1-2 days Time of Disposition: 20:39
[2022-12-18 20:16] LABS: Basophils % (A) 1 %; Eosinophils # (A) 0.5 k/uL (0-0.7); Eosinophils % (A) 6 %; HCT 40.1 % (34.0-46.0); HGB 13.5 gm/dL (11.4-16.0); Lymphocytes # (A) 2.5 k/uL (1.0-4.8); Lymphocytes % (A) 33 %; MCH 29.7 pg (25.0-35.0); MCHC 33.6 g/dL (31.0-37.0); MCV 88.4 fL (80.0-100.0); Mean Platelet Volume 7.2; Monocytes # (A) 0.4 k/uL (0-1.0); Monocytes % (A) 6 %; Neutrophils % (A) 52 %; Platelet Count 385 k/uL (150-450); RBC 4.53 m/uL (3.80-5.40); RDW 13.2 % (11.5-15.5); WBC 7.5 k/uL (3.8-10.6)
[2022-12-18 20:19] LABS: ALT 19 U/L (4-34); AST 24 U/L (14-36); African American GFR (CKD) 71 (>60 ml/min/1.73 sqM); Alkaline Phosphatase 68 U/L (38-126); Anion Gap 10 mmol/L; Blood Urea Nitrogen 15 mg/dL (7-17); Calcium 9.6 mg/dL (8.4-10.2); Carbon Dioxide 23 mmol/L (22-30); Chloride 108 mmol/L (98-107); Glucose 94 mg/dL (74-99); Non-African American GFR(CKD) 61 (>60 ml/min/1.73 sqM); Potassium 4.1 mmol/L (3.5-5.1); Sodium 141 mmol/L (137-145); Total Bilirubin 0.3 mg/dL (0.2-1.3); Total Protein 6.4 g/dL (6.3-8.2)
[2022-12-18 20:30] LABS: INR 0.9 (<1.2); Partial Thromboplastin Time 23.4 sec (22.0-30.0); Prothrombin Time 9.7 sec (10.0-12.5)
--- NOTE | 2022-12-18 20:38 | XR ---
EXAMINATION TYPE: XR chest 2V DATE OF EXAM: 12/18/2022 COMPARISON: 09/20/2022 INDICATION: Chest pain short of breath TECHNIQUE: Frontal and lateral views of the chest are obtained. FINDINGS: The heart size is normal. The pulmonary vasculature is normal. The lungs are clear. IMPRESSION: 1. No acute pulmonary process.
== END 2022-12-18 21:29 | disposition home or self-care (01) ==
LOC: EC 19:23
DX: R07.89 Other chest pain (principal); R00.0 Tachycardia, unspecified; I25.2 Old myocardial infarction; J44.9 Chronic obstructive pulmonary disease, unspecified; F17.200 Nicotine dependence, unspecified, uncomplicated; F41.9 Anxiety disorder, unspecified; F32.A Depression, unspecified; Z79.899 Other long term (current) drug therapy; Z88.1 Allergy status to other antibiotic agents; Z91.041 Radiographic dye allergy status; Z91.018 Allergy to other foods; Z88.8 Allergy status to other drugs, medicaments and biological substances
CPT/HCPCS: 36415; 93005; 85379; 80053; 83735; 84484; 85025; 85610; 85730; 71046; 99285; 96374; J1885

== ENCOUNTER 2023-05-29 15:03 | Emergency (ER) | payer MEDICARE ==
--- NOTE | 2023-05-29 15:16 | ED ---
General Adult HPI - General Source: patient, RN notes reviewed Mode of arrival: ambulatory Limitations: no limitations <Inés García - Last Filed: 05/29/23 15:15> <Kerri Cavazos - Last Filed: 05/31/23 00:32> - General Stated complaint: Neck pain Time Seen by Provider: 05/29/23 15:16 - History of Present Illness Initial comments: Quick note: 52-year-old female presented to the ER with chief complaint of left- sided neck pain. Patient has had surgeries on her neck. She states she turned her head to the right recently and felt a pop. She is also reporting paresthesias down bilateral arms. (Inés García) 52 year old female presents to the emergency department for evaluation of left sided neck discomfort. She states that this has been going on for around 2 weeks. She reports that at that time she turned her head and heard a pop. She states that since then she has had discomfort in the left side of her neck. States the pain is worse with movement. She admits to burning in the back of her hands. Denies numbness, tingling anywhere else in arms. She does report prior surgery to her neck. She follows closely with ortho spine [place]. She admits to seeing her neurosurgeon since the pain started. She is scheduled for CT and MRI on 06/10/23. (Kerri Cavazos) - Related Data Home Medications Medication Instructions Recorded Confirmed Albuterol Inhaler [Ventolin Hfa 1 - 2 puff INHALATION RT-Q6H PRN 09/20/22 12/18/22 Inhaler] Gabapentin [Neurontin] 100 mg PO QID 09/20/22 12/18/22 HYDROcodone/APAP 10-325MG [[place] 1 tab PO 5XD PRN 09/20/22 12/18/22 10-325] Ibuprofen [Motrin] 400 mg PO BID PRN 09/20/22 12/18/22 busPIRone HCl [Buspar] 10 mg PO BID PRN 09/20/22 12/18/22 diazePAM [Valium] 5 mg PO BID PRN 09/20/22 12/18/22 Cyclobenzaprine [Flexeril] 10 mg PO TID PRN 12/18/22 12/18/22 Previous Rx's Medication Instructions Recorded Ketorolac [Toradol] 10 mg PO Q8HR #15 tab 05/29/23 Allergies Allergy/AdvReac Type Severity Reaction Status Date / Time aloe vera [From Flexall] Allergy Anaphylaxis Verified 05/29/23 15:52 bacitracin Allergy Rash/Hives Verified 05/29/23 15:52 [From Neosporin ([id number])] menthol [From Flexall] Allergy Anaphylaxis Verified 05/29/23 15:52 neomycin Allergy Rash/Hives Verified 05/29/23 15:52 [From Neosporin ([id number])] polymyxin B Allergy Rash/Hives Verified 05/29/23 15:52 [From Neosporin ([id number])] red (food color) Allergy Rash/Hives Verified 05/29/23 15:52 vitamin E (d-alpha Allergy Anaphylaxis Verified 05/29/23 15:52 tocopherol) [From Flexall] Review of Systems ROS Other: All systems not noted in ROS Statement are negative. <Inés García - Last Filed: 05/29/23 15:15> ROS Other: All systems not noted in ROS Statement are negative. <Kerri Cavazos - Last Filed: 05/31/23 00:32> ROS Statement: Those systems with pertinent positive or pertinent negative responses have been documented in the HPI. Past Medical History Past Medical History: COPD Additional Past Medical History / Comment(s): back pain, lung nodule History of Any Multi-Drug Resistant Organisms: None Reported Past Surgical History: Hysterectomy, Orthopedic Surgery Past Psychological History: Anxiety, Depression Smoking Status: Current every day smoker Past Alcohol Use History: Occasional Past Drug Use History: None Reported <Inés García - Last Filed: 05/29/23 15:15> General Exam <Inés García - Last Filed: 05/29/23 15:15> Limitations: no limitations General appearance: alert, in no apparent distress Head exam: Present: atraumatic, normocephalic, normal inspection Eye exam: Present: normal appearance, PERRL, EOMI. Absent: scleral icterus, conjunctival injection, periorbital swelling ENT exam: Present: normal exam, mucous membranes moist Neck exam: Present: normal inspection, tenderness (left trapezius), full ROM. Absent: meningismus, lymphadenopathy Respiratory exam: Present: normal lung sounds bilaterally. Absent: respiratory distress, wheezes, rales, rhonchi, stridor Cardiovascular Exam: Present: regular rate, normal rhythm, normal heart sounds. Absent: systolic murmur, diastolic murmur, rubs, gallop, clicks Extremities exam: Present: normal inspection, full ROM, normal capillary refill. Absent: tenderness, pedal edema, joint swelling, calf tenderness Neurological exam: Present: alert, oriented X3, CN II-XII intact, normal gait. Absent: motor sensory deficit Psychiatric exam: Present: normal affect, normal mood Skin exam: Present: warm, dry, intact, normal color. Absent: rash <Kerri Cavazos - Last Filed: 05/31/23 00:32> - General Exam Comments Initial Comments: Visual Physical Exam General: Well-appearing, nontoxic, no acute distress. Head: Normocephalic, atraumatic Eyes: PERRLA, EOMI ENT: Airway patent Chest: Nonlabored breathing Skin: No visual rash, normal skin tone Neuro: Alert and oriented 3 Musculoskeletal: No gross abnormalities (Inés García) Course Vital Signs 05/29/23 05/29/23 15:50 18:53 Temperature 99.5 F 98.8 F Pulse Rate 96 90 Respiratory 16 18 Rate Blood Pressure 117/85 115/76 O2 Sat by Pulse 99 98 Oximetry Medical Decision Making <Inés García - Last Filed: 05/29/23 15:15> <Kerri Cavazos - Last Filed: 05/31/23 00:32> - Medical Decision Making I performed the quick note portion of this chart. Electronically signed by Inés García PA-C (Inés García) Was pt. sent in by a medical professional or institution (KATHYA Neal, WOOD TREATING INSPECTOR, urgent ca re, hospital, or fpc...) When possible be specific @ -No Did you speak to anyone other than the patient for history (EMS, parent, family, police, friend...)? What history was obtained from this source @ -No Did you review nursing and triage notes (agree or disagree)? Why? @ -I reviewed and agree with nursing and triage notes Were old charts reviewed (outside hosp., previous admission, EMS record, old EKG, old radiological studies, urgent care reports/EKG's, fpc records)? Report findings @ -No old charts were reviewed Differential Diagnosis (chest pain, altered mental status, abdominal pain women, abdominal pain men, vaginal bleeding, weakness, fever, dyspnea, syncope, headache, dizziness, GI bleed, back pain, seizure, CVA, palpatations, mental health, musculoskeletal)? @ -Not applicable EKG interpreted by me (3pts min.). @ -None X-rays interpreted by me (1pt min.). @ -Cervical spine x-ray shows no acute fracture or dislocation, some foraminal narrowing on the left at C2-C3 CT interpreted by me (1pt min.). @ -None done U/S interpreted by me (1pt. min.). @ -None done What testing was considered but not performed or refused? (CT, X-rays, U/S, labs)? Why? @ -None What meds were considered but not given or refused? Why? @ -None Did you discuss the management of the patient with other professionals (professionals i.e. , PA, WOOD TREATING INSPECTOR, lab, RT, psych nurse, psych social worker, inflatable buildings laminator, teacher, chief diversity officer, family service caseworker)? Give summary @ -No Was smoking cessation discussed for >3mins.? @ -No Was critical care preformed (if so, how long)? @ -No Were there social determinants of health that impacted care today? How? (Homelessness, low income, unemployed, alcoholism, drug addiction, transportation, low edu. Level, literacy, decrease access to med. care, fdc, rehab)? @ -No Was there de-escalation of care discussed even if they declined (Discuss DNR or withdrawal of care, Hospice)? DNR status @ -No What co-morbidities impacted this encounter? (DM, HTN, Smoking, COPD, CAD, Cancer, CVA, ARF, Chemo, Hep., AIDS, mental health diagnosis, sleep apnea, morbid obesity)? @ -None Was patient admitted / discharged? Hospital course, mention meds given and route, prescriptions, significant lab abnormalities, going to OR and other pertinent info. @ -Discharged. Patient presented to the emergency department for evaluation of neck pain. She does have chronic neck pain. 2 weeks ago she states that she felt a pop in her neck and has had worsening pain since then. X-rays of the cervical spine obtained which show no acute fracture or dislocation, some foraminal narrowing at C2-C3 on the left. Patient states that she is aware of this. She is scheduled for outpatient CT and MRI. Discussed obtaining CT in ED today, patient would like to wait to her outpatient appointment. Prescription was sent to her pharmacy for Toradol, advised not to take any other anti- inflammatories while on this medication. Patient understanding agreeable plan. Patient stable at time of discharge. Case discussed with Dr. Lopez Undiagnosed new problem with uncertain prognosis? @ -No Drug Therapy requiring intensive monitoring for toxicity (Heparin, Nitro, In sulin, Cardizem)? @ -No Were any procedures done? @ -No Diagnosis/symptom? @ -Cervical strain Acute, or Chronic, or Acute on Chronic? @ -Acute Uncomplicated (without systemic symptoms) or Complicated (systemic symptoms)? @ -Uncomplicated Side effects of treatment? @ -No Exacerbation, Progression, or Severe Exacerbation? @ -No Poses a threat to life or bodily function? How? (Chest pain, [place], [place], pneumonia, PE, COPD, DKA, ARF, appy, cholecystitis, CVA, Diverticulitis, Homicidal, Suicidal, threat to staff... and all critical care pts) @ -No (Kerri Cavazos) Disposition <Inés García - Last Filed: 05/29/23 15:15> Is patient prescribed a controlled substance at d/c from ED?: No <Kerri Cavazos - Last Filed: 05/31/23 00:32> Clinical Impression: Cervical radiculopathy, Strain of neck muscle Disposition: HOME SELF-CARE Condition: Stable Instructions (If sedation given, give patient instructions): Cervical Strain (ED), Cervical Radiculopathy (ED) Additional Instructions: Please follow up with your surgeon and neurologist. Do not take any anti- inflammatories while taking toradol. Return to the emergency department for new or worsening symptoms. Prescriptions: Ketorolac [Toradol] 10 mg PO Q8HR #15 tab Referrals: None,Stated [Primary Care Provider] - 1-2 days
--- NOTE | 2023-05-29 16:40 | XR ---
EXAMINATION TYPE: XR cervical spine comp DATE OF EXAM: 05/29/2023 COMPARISON: None HISTORY: Pain TECHNIQUE: 5 view cervical spine FINDINGS: There is an anterior cervical fusion of C3-4 through C6. Disc spacers present at C4-5. Post erior spinal lamellar line is intact. The prevertebral space is normal. Vertebral body heights appear preserved. Some facet degenerative changes present diffusely through the cervical spine. C2-3 forami nal narrowing is present on the left. Odontoid is nondiagnostic due to overlying occiput. IMPRESSION: 1. No acute osseous abnormality cervical spine. 2. Some foraminal narrowing is present left C2-3.
[2023-05-29] MEDS: KETOROLAC 15 MG/ML 1 ML VIAL IM STA (18:42)
[2023-05-29 19:13] VITALS: BP 115/76; PULSE 90; RESP 18; TEMP 98.8
== END 2023-05-29 18:54 | disposition home or self-care (01) ==
LOC: EC 15:03
DX: S16.1XXA Strain of muscle, fascia and tendon at neck level, initial encounter (principal); M54.12 Radiculopathy, cervical region; F17.200 Nicotine dependence, unspecified, uncomplicated; Z88.8 Allergy status to other drugs, medicaments and biological substances; X58.XXXA Exposure to other specified factors, initial encounter
CPT/HCPCS: 72050; 99283; 96372; J1885

== ENCOUNTER 2023-11-07 21:06 | Emergency (ER) | payer MEDICARE ==
[2023-11-07 21:16] VITALS: TEMP 97.9
[2023-11-07] MEDS: methylPREDNISolone SOD SUCCI 125 MG/2 ML VIAL IM ONE (21:47)
[2023-11-07] MEDS: FAMOTIDINE 20 MG TAB PO STA (21:47)
[2023-11-07] MEDS: BETAMETHASONE DIPROPIONATE 0.05% CREAM 15 GM TUBE TOPICAL ONE (22:59)
[2023-11-07] MEDS: KETOROLAC 15 MG/ML 1 ML VIAL IM STA (23:02)
--- NOTE | 2023-11-07 23:13 | ED ---
Allergic Reaction HPI - General Chief complaint: Allergic Reaction Stated complaint: Insect Sting Time Seen by Provider: 11/07/23 21:23 Source: patient, RN notes reviewed Mode of arrival: ambulatory Limitations: no limitations - History of Present Illness Initial Comments: This is a 53 year old female who presents to the emergency department for a bee sting. Patient was stung in the right forearm at around 5 PM. Shortly afterwards she started to develop swelling to the right arm that she believes is getting bigger. This is also increasingly painful and red. She has been stung by bees before but never developed any kind of allergic reaction. She took a total of 2 doses of Benadryl before arrival. Denies any chest pain or shortness of breath. MD Complaint: allergic reaction - Related Data Home Medications Medication Instructions Recorded Confirmed Albuterol Inhaler [Ventolin Hfa 1 - 2 puff INHALATION RT-Q6H PRN 09/20/22 12/18/22 Inhaler] Gabapentin [Neurontin] 100 mg PO QID 09/20/22 12/18/22 HYDROcodone/APAP 10-325MG [[place] 1 tab PO 5XD PRN 09/20/22 12/18/22 10-325] Ibuprofen [Motrin] 400 mg PO BID PRN 09/20/22 12/18/22 busPIRone HCl [Buspar] 10 mg PO BID PRN 09/20/22 12/18/22 diazePAM [Valium] 5 mg PO BID PRN 09/20/22 12/18/22 Cyclobenzaprine [Flexeril] 10 mg PO TID PRN 12/18/22 12/18/22 Previous Rx's Medication Instructions Recorded Ketorolac [Toradol] 10 mg PO Q8HR #15 tab 05/29/23 Famotidine 40 mg PO DAILY 5 Days #5 tablet 11/08/23 predniSONE 50 mg PO DAILY 5 Days #5 tab 11/08/23 Allergies Allergy/AdvReac Type Severity Reaction Status Date / Time aloe vera [From Flexall] Allergy Anaphylaxis Verified 05/29/23 15:52 bacitracin Allergy Rash/Hives Verified 05/29/23 15:52 [From Neosporin ([id number])] menthol [From Flexall] Allergy Anaphylaxis Verified 05/29/23 15:52 neomycin Allergy Rash/Hives Verified 04/16/24 15:52 [From Neosporin ([id number])] nickel Allergy Rash/Hives Verified 11/07/23 21:16 polymyxin B Allergy Rash/Hives Verified 05/29/23 15:52 [From Neosporin ([id number])] red (food color) Allergy Rash/Hives Verified 05/29/23 15:52 vitamin E (d-alpha Allergy Anaphylaxis Verified 05/29/23 15:52 tocopherol) [From Flexall] Review of Systems ROS Statement: Those systems with pertinent positive or pertinent negative responses have been documented in the HPI. ROS Other: All systems not noted in ROS Statement are negative. Past Medical History Past Medical History: COPD Additional Past Medical History / Comment(s): back pain, lung nodule, neoplasm of occipital bone, stenosis of cervix, inflammation of sacroiliac join, prolapsed lumbar intervertebral disc, degenerative of cerical/lumbar intervertebral disc, occipital headache History of Any Multi-Drug Resistant Organisms: None Reported Past Surgical History: Hysterectomy, Orthopedic Surgery Additional Past Surgical History / Comment(s): cervical post laminectomy, cervical radiculopathy, lumbar radiculopathy, lumosacreal radiculitis Past Psychological History: Anxiety, Depression Smoking Status: Current every day smoker Past Alcohol Use History: Occasional Past Drug Use History: None Reported General Exam Limitations: no limitations General appearance: alert, in no apparent distress Head exam: Present: atraumatic, normocephalic, normal inspection Respiratory exam: Present: normal lung sounds bilaterally. Absent: respiratory distress, wheezes, rales, rhonchi, stridor Cardiovascular Exam: Present: regular rate, normal rhythm, normal heart sounds. Absent: systolic murmur, diastolic murmur, rubs, gallop, clicks Extremities exam: Present: other (Generalized swelling, erythema, and warmth to the right forearm. 2+ radial pulses.) Neurological exam: Present: alert, oriented X3, CN II-XII intact Psychiatric exam: Present: normal affect, normal mood Course Vital Signs 11/07/23 11/08/23 21:13 00:36 Temperature 97.9 F Pulse Rate 66 87 Respiratory 18 20 Rate Blood Pressure 142/86 138/89 O2 Sat by Pulse 99 98 Oximetry Medical Decision Making - Medical Decision Making This is a 53-year-old female who presents to the emergency department for concerns of an allergic reaction. Was pt. sent in by a medical professional or institution? @ -No Did you speak to anyone other than the patient for history? @ -No Did you review nursing and triage notes? @ -Yes, and I agree, it is accurate with regards to the patient's symptoms. Were old charts reviewed? @ -No Differential Diagnosis? @ -Differential Arm Redness/Swelling: Allergic reaction, cellulitis, gout, burn, eczema, this is not meant to be an all-inclusive list. EKG interpreted by me (3pts min.)? @ -Not obtained X-rays interpreted by me (1pt min.)? @ -Not obtained CT interpreted by me (1pt min.)? @ -Not obtained U/S interpreted by me (1pt. min.)? @ -Not obtained What testing was considered but not performed? (CT, X-rays, U/S, labs)? Why? @ -None What meds were considered but not given? Why? @ -None Did you discuss the management of the patient with other professionals? @ -No Did you reconcile home meds? @ -No Was smoking cessation discussed for >3mins.? @ -No Was critical care preformed (if so, how long)? @ -No Were there social determinants of health that impacted care today? How? (Homelessness, low income, unemployed, alcoholism, drug addiction, transportation, low edu. Level, literacy, decrease access to med. care, senior care, rehab)? @ -No Was there de-escalation of care discussed even if they declined? (Discuss DNR or withdrawal of care, Hospice)? @ -No What co-morbidities impacted this encounter? (DM, HTN, Smoking, COPD, CAD, Cancer, CVA, Hep., AIDS, mental health diagnosis, sleep apnea, morbid obesity)? @ -None Was patient admitted / discharged? @ -Discharged. Patient had a localized allergic reaction to the right forearm. She was given IM Solu-Medrol, Benadryl, and famotidine. Betamethasone cream provided to be applied topically. Prescription for additional 5-day course of prednisone and famotidine provided in the event symptoms persist. Advised to continue with Benadryl as well and applying the cream provided up to twice daily. Patient discharged home in stable condition. Case discussed with ED attending Dr. More Return precautions reviewed in depth, the patient is instructed to return to the emergency department with any new, worsening, or concerning symptoms. Patient verbalized understanding. Undiagnosed new problem with uncertain prognosis? @ -None Drug Therapy requiring intensive monitoring for toxicity (Heparin, Nitro, Insulin, Cardizem)? @ -None Were any procedures done? @ -None Diagnosis/symptom? @ -Allergic reaction to insect sting Acute, or Chronic, or Acute on Chronic? @ -Acute Uncomplicated (without systemic symptoms) or Complicated (systemic symptoms)? @ -Uncomplicated Side effects of treatment? @ -None Exacerbation, Progression, or Severe Exacerbation] @ -Not applicable Poses a threat to life or bodily function? @ -No Disposition Clinical Impression: Allergic reaction to insect sting Disposition: HOME SELF-CARE Instructions (If sedation given, give patient instructions): Urticaria (ED), General Allergic Reaction (ED) Additional Instructions: Return to the emergency department with any new, worsening, or concerning symptoms. Take the prednisone and famotidine daily for the next 5 days. Continue to take Benadryl every 4-6 hours. You can apply the Diprolene cream provided 2 times daily. Follow up with your primary care provider in 1-2 days. Prescriptions: Famotidine 40 mg PO DAILY 5 Days #5 tablet predniSONE 50 mg PO DAILY 5 Days #5 tab Is patient prescribed a controlled substance at d/c from ED?: No Referrals: Harper Cao DO [Primary Care Provider] - 1-2 days Time of Disposition: 00:49
[2023-11-08] MEDS: diphenhydrAMINE 50 MG/ML 1 ML VIAL IM STA (00:14)
[2023-11-08 00:38] VITALS: BP 138/89; PULSE 87; RESP 20
== END 2023-11-08 01:47 | disposition home or self-care (01) ==
LOC: EC 21:06
CPT/HCPCS: 96372; 99283

== ENCOUNTER → 2023-11-30 | Outpatient (CLI) | payer MEDICARE ==
--- NOTE | 2023-11-30 10:30 | CT ---
EXAMINATION TYPE: CT chest wo con CT DLP: 118.3 mGycm, Automated exposure control for dose reduction was used. DATE OF EXAM: 11/30/2023 9:37 AM COMPARISON: Chest radiograph from 12/19/2023. CLINICAL INDICATION: Female, 53 years old with history of R91.1 PULMONARY NODULE; PHH, PULMONARY NODU LE TECHNIQUE: Multiple axial images were obtained through the chest. Sagittal and coronal reformats were created for review. MIP was performed on a separate workstation. Contrast used: mL of (None if empty) Oral contrast used: (None if empty) FINDINGS: LUNGS/ PLEURA: Moderate centrilobular emphysema changes throughout the lungs. No focal consolidation, pneumothorax or pleural effusion. Left lower quadrant 5 mm pulmonary nodule. AIRWAY: Patent and unremarkable. HEART: Size within normal limits. MEDIASTINUM: No gross evidence of adenopathy. VASCULATURE: No aortic aneurysm. MUSCULOSKELETAL: No acute osseous abnormalities T6 vertebral body sclerotic focus compatible with [place]. SOFT TISSUES/LYMPH NODES: Unremarkable. LOWER NECK: No significant findings. UPPER ABDOMEN: No significant findings. IMPRESSION: 1. 5 mm left lower lobe pulmonary nodule consider follow-up in one year with low-dose lung cancer sc reening. 2. Moderate emphysema changes. Follow up recommendations for incidental pulmonary nodules, if there are any, are per [employer] [employer] or [employer]. https://radiopaedia.org/articles/ttjjfotqnh-vygcygw-bgqiycpvm-ydwthe-oayrraqeqlrkvna-[email or web address]?lang=us [facility], , 11/30/2023 10:27 AM
== END | disposition home or self-care (01) ==
LOC: RADCTMAIN 08:57
PROVIDERS: ATTEND Family Medicine
CPT/HCPCS: 71250

== ENCOUNTER 2024-04-05 09:33 | Emergency (ER) | payer MEDICARE ==
[2024-04-05 09:54] VITALS: RESP 18
--- NOTE | 2024-04-05 10:29 | ED ---
Fall HPI - General Chief Complaint: Fall Stated Complaint: Fall-R arm injury Time Seen by Provider: 04/05/24 10:28 Source: patient, RN notes reviewed Mode of arrival: ambulatory Limitations: no limitations - History of Present Illness Initial Comments: Patient is a 53-year-old female presented to the ER for evaluation of a fall. Patient states she was letting her dog out of her camper this morning when the dog took off pulling the leash causing patient to fall backwards on ice covered stairs. She states she landed in a FOOSH position on bilateral wrist. She denies any head injury or loss of consciousness. She was reporting most pain in her right wrist and hand. Denies paresthesias. Patient also is reporting pain over the ulnar styloid of left wrist. No other injuries or complaints. Patient has not taken anything for pain at this time. - Related Data Home Medications Medication Instructions Recorded Confirmed Albuterol Inhaler [Ventolin Hfa 1 - 2 puff INHALATION RT-Q6H PRN 09/20/22 12/18/22 Inhaler] Gabapentin [Neurontin] 100 mg PO QID 09/20/22 12/18/22 HYDROcodone/APAP 10-325MG [[place] 1 tab PO 5XD PRN 09/20/22 12/18/22 10-325] Ibuprofen [Motrin] 400 mg PO BID PRN 09/20/22 12/18/22 busPIRone HCl [Buspar] 10 mg PO BID PRN 09/20/22 12/18/22 diazePAM [Valium] 5 mg PO BID PRN 09/20/22 12/18/22 Cyclobenzaprine [Flexeril] 10 mg PO TID PRN 12/18/22 12/18/22 Previous Rx's Medication Instructions Recorded Ketorolac [Toradol] 10 mg PO Q8HR #15 tab 05/29/23 Famotidine 40 mg PO DAILY 5 Days #5 tablet 11/08/23 predniSONE 50 mg PO DAILY 5 Days #5 tab 11/08/23 Ketorolac [Toradol] 10 mg PO Q8HR #15 tab 04/05/24 Allergies Allergy/AdvReac Type Severity Reaction Status Date / Time aloe vera [From Flexall] Allergy Anaphylaxis Verified 04/05/24 09:54 bacitracin Allergy Rash/Hives Verified 04/05/24 09:54 [From Neosporin ([id number])] menthol [From Flexall] Allergy Anaphylaxis Verified 04/05/24 09:54 neomycin Allergy Rash/Hives Verified 04/05/24 09:54 [From Neosporin ([id number])] nickel Allergy Rash/Hives Verified 04/05/24 09:54 polymyxin B Allergy Rash/Hives Verified 04/05/24 09:54 [From Neosporin ([id number])] red (food color) Allergy Rash/Hives Verified 04/05/24 09:54 vitamin E (d-alpha Allergy Anaphylaxis Verified 04/05/24 09:54 tocopherol) [From Flexall] Review of Systems ROS Statement: Those systems with pertinent positive or pertinent negative responses have been documented in the HPI. ROS Other: All systems not noted in ROS Statement are negative. Past Medical History Past Medical History: COPD Additional Past Medical History / Comment(s): back pain, lung nodule, neoplasm of occipital bone, stenosis of cervix, inflammation of sacroiliac join, prolapsed lumbar intervertebral disc, degenerative of cerical/lumbar intervertebral disc, occipital headache History of Any Multi-Drug Resistant Organisms: None Reported Past Surgical History: Hysterectomy, Orthopedic Surgery Additional Past Surgical History / Comment(s): cervical post laminectomy, cervical radiculopathy, lumbar radiculopathy, lumosacreal radiculitis Past Psychological History: Anxiety, Depression Smoking Status: Current every day smoker Past Alcohol Use History: Occasional Past Drug Use History: None Reported General Exam Limitations: no limitations General appearance: alert, in no apparent distress Respiratory exam: Present: normal lung sounds bilaterally. Absent: respiratory distress, wheezes, rales, rhonchi, stridor Cardiovascular Exam: Present: regular rate, normal rhythm, normal heart sounds. Absent: systolic murmur, diastolic murmur, rubs, gallop, clicks Extremities exam: Present: tenderness (Right anatomical snuffbox), normal capillary refill (2+ bilateral radial pulses), other (Limited active ROM due to pain) Neurological exam: Present: alert, oriented X3, CN II-XII intact Skin exam: Present: warm, dry, intact, normal color. Absent: rash Course Vital Signs 04/05/24 04/05/24 09:47 11:55 Temperature 97.9 F 97.8 F Pulse Rate 115 H 101 H Respiratory 18 18 Rate Blood Pressure 167/83 149/76 O2 Sat by Pulse 98 98 Oximetry Procedures - Orthopedic Splinting/Casting Injury #1 Side: right Upper Extremity Injury Location: wrist Upper Extremity Immobilizer: volar splint Medical Decision Making - Medical Decision Making Was pt. sent in by a medical professional or institution (, KATHYA, PANEL ASSEMBLER, urgent care, hospital, or prison...) When possible be specific @ -No Did you speak to anyone other than the patient for history (EMS, parent, family, police, friend...)? What history was obtained from this source @ -No Did you review nursing and triage notes (agree or disagree)? Why? @ -I reviewed and agree with nursing and triage notes Were old charts reviewed (outside hosp., previous admission, EMS record, old EKG, old radiological studies, urgent care reports/EKG's, prison records)? Report findings @ -No old charts were reviewed Differential Diagnosis (chest pain, altered mental status, abdominal pain women, abdominal pain men, vaginal bleeding, weakness, fever, dyspnea, syncope, headache, dizziness, GI bleed, back pain, seizure, CVA, palpatations, mental health, musculoskeletal)? @ -Differential Musculoskeletal: Muscular strain, contusion, ligament sprain, fracture, arthritis, septic arthritis, bursitis, cellulitis, muscle spasm, nerve compression, DVT, arterial occlusion, herpes zoster, electrolyte abnormality, tumor.... This is not meant to be in all inclusive list EKG interpreted by me (3pts min.). @ -None done X-rays interpreted by me (1pt min.). @ -Bilateral hand x-ray interpreted by me negative for acute fractures or disl ocations. CT interpreted by me (1pt min.). @ -None done U/S interpreted by me (1pt. min.). @ -None done What testing was considered but not performed or refused? (CT, X-rays, U/S, labs)? Why? @ -None What meds were considered but not given or refused? Why? @ -None Did you discuss the management of the patient with other professionals (professionals i.e. KATHYA Neal, PANEL ASSEMBLER, lab, RT, psych nurse, social work supervisor, college football coach, teacher, plain clothes police officer, top case assembler)? Give summary @ -No Was smoking cessation discussed for >3mins.? @ -No Was critical care preformed (if so, how long)? @ -No Were there social determinants of health that impacted care today? How? (Homelessness, low income, unemployed, alcoholism, drug addiction, transportation, low edu. Level, literacy, decrease access to med. care, senior living, rehab)? @ -No Was there de-escalation of care discussed even if they declined (Discuss DNR or withdrawal of care, Hospice)? DNR status @ -No What co-morbidities impacted this encounter? (DM, HTN, Smoking, COPD, CAD, Cancer, CVA, ARF, Chemo, Hep., AIDS, mental health diagnosis, sleep apnea, morbid obesity)? @ -None Was patient admitted / discharged? Hospital course, mention meds given and route , prescriptions, significant lab abnormalities, going to OR and other pertinent info. @ -Discharge. 53-year-old female presented to the ER for evaluation of fall. Upon rooming, history and physical exam completed. Vitals within acceptable limits. Exam remarkable for right anatomical snuffbox tenderness. Patient is neurovascularly intact. X-rays obtained negative for acute fractures or dislo cations. Given anatomical snuffbox tenderness patient will be placed in the splint, see note above. Patient given symptomatic control in the ER with IM Dilaudid and Toradol. Toradol prescribed for outpatient pain management. Patient also reports she takes [place] at home for chronic pain. I advised her to follow-up closely with orthopedics for reevaluation, referral given. Strict ret urn parameters discussed. Patient discharged stable condition with follow-up to orthopedics. Patient verbally breast understanding agree with care plan. Case discussed with ED attending, Dr. Lopez. Undiagnosed new problem with uncertain prognosis? @ -No Drug Therapy requiring intensive monitoring for toxicity (Heparin, Nitro, Insulin, Cardizem)? @ -No Were any procedures done? @ -Yes Diagnosis/symptom? @ -Fall/anatomical snuffbox tenderness. Acute, or Chronic, or Acute on Chronic? @ -Acute Uncomplicated (without systemic symptoms) or Complicated (systemic symptoms)? @ -Uncomplicated Side effects of treatment? @ -No Exacerbation, Progression, or Severe Exacerbation? @ -No Poses a threat to life or bodily function? How? (Chest pain, [place], [place], pneumonia, PE, COPD, DKA, ARF, appy, cholecystitis, CVA, Diverticulitis, Homicidal, Suicidal, threat to staff... and all critical care pts) @ -No - Radiology Data Radiology results: report reviewed, image reviewed Disposition Clinical Impression: Fall, Tenderness of anatomical snuffbox Disposition: HOME SELF-CARE Condition: Stable Instructions (If sedation given, give patient instructions): Fall Prevention for Older Adults (ED) Additional Instructions: Follow-up with orthopedics. Return to the ER for any new or worsening concerns. Prescriptions: Ketorolac [Toradol] 10 mg PO Q8HR #15 tab Is patient prescribed a controlled substance at d/c from ED?: No Referrals: Harper Cao DO [Primary Care Provider] - 1-2 days Mikael Rosenthal MD [STAFF PHYSICIAN] - 1-2 days Time of Disposition: 11:39
[2024-04-05] MEDS: ONDANSETRON ODT 4 MG TAB PO STA (10:36)
[2024-04-05] MEDS: HYDROmorphone 1 MG/ML 1 ML SYRINGE IM STA (10:36)
--- NOTE | 2024-04-05 11:27 | XR ---
EXAMINATION TYPE: XR hand complete bilateral DATE OF EXAM: 04/05/2024 10:54 AM COMPARISON: None. CLINICAL INDICATION: Female, 53 years old with history of fall FOOSH, pain TECHNIQUE: Bilateral hands 3 view(s) obtained each. FINDINGS: No acute fractures or dislocations. Joint spaces appear preserved. Soft tissues appear unremarkable. Follow up exams can be performed 7-10 days from acute trauma for continued pain. IMPRESSION: 1. No acute osseous abnormalities bilateral hands [facility], , 04/05/2024 11:25 AM
[2024-04-05] MEDS: KETOROLAC 15 MG/ML 1 ML VIAL IM STA (11:52)
[2024-04-05 11:56] VITALS: BP 149/76; PULSE 101; TEMP 97.8
== END 2024-04-05 12:05 | disposition home or self-care (01) ==
LOC: EC 09:33
DX: S69.91XA Unspecified injury of right wrist, hand and finger(s), initial encounter (principal); F17.200 Nicotine dependence, unspecified, uncomplicated; Z91.041 Radiographic dye allergy status; Z91.09 Other allergy status, other than to drugs and biological substances; Z88.1 Allergy status to other antibiotic agents; Z88.8 Allergy status to other drugs, medicaments and biological substances; W00.0XXA Fall on same level due to ice and snow, initial encounter
CPT/HCPCS: 73130; 99283; 29125; 96372 ×2; J1171; J1885